=== PATIENT | male | born 1980 | race Caucasian/White ===

== ENCOUNTER 2018-07-07 14:31 | Emergency (ER) | payer SELFPAY ==
[~2018-07-07 14:31] MED LIST: KETOROLAC10 MG PO; ORPHENADRINE C100 MG PO
[2018-07-07 15:16] LABS: EOS # 0.2 (0.04-0.40); EOS % 1.9 % (0.0-4.0); HEMATOCRIT 44.3 % (42.0-52.0); HEMOGLOBIN 14.6 g/dL (13.5-18.0); LYMPH# 2.6 (1.50-4.00); MEAN CELL VOLUME 90 fl (78-100); MEAN CORPUSCULAR HEMOGLOBIN 30 pg (27-31); MEAN CORPUSCULAR HGB CONC 33 g/dL (33-37); MONO # 0.9 (0.20-0.80); NEU # 4.4 (1.40-6.50); PLATELET COUNT 287 K/mm3 (130-400); WHITE BLOOD COUNT 8.1 K/mm3 (4.8-10.8)
[2018-07-07 15:25] LABS: ALBUMIN 4.1 g/dL (3.5-5.0); CALCIUM 9.2 mg/dL (8.4-10.2); POTASSIUM 3.7 mmol/L (3.6-5.0); TOTAL BILIRUBIN 0.8 mg/dL (0.2-1.3); TOTAL PROTEIN 6.8 g/dL (6.3-8.2)
[2018-07-07 16:45] LABS: PH-URINE 5.5 (5.0 - 8.0); URINE APPEARANCE CLEAR; URINE COLOR YELLOW; URINE PROTEIN(semi-quant) TRACE mg/dL (NEGATIVE)
[2018-07-07 16:46] LABS: URINE BILIRUBIN NEGATIVE (NEGATIVE); URINE BLOOD NEGATIVE (NEGATIVE); URINE GLUCOSE NEGATIVE (NEGATIVE); URINE KETONE NEGATIVE (NEGATIVE); URINE LEUKOCYTE ESTERASE NEGATIVE (NEGATIVE); URINE NITRATE NEGATIVE (NEGATIVE); URINE UROBILINOGEN NORMAL (NORMAL); URINE WBC 0-1 /hpf (0-3)
[2018-07-07] MEDS ORDERED: LORAZEPAM0.5 M1 PO (17:12)
[2018-07-07 17:13] VITALS: BP 127/91
== END 2018-07-07 17:14 | disposition home or self-care (01) ==
LOC: ED 14:31
PROVIDERS: Family Medicine
DX: R07.89 Other chest pain (principal); F15.20 Other stimulant dependence, uncomplicated; F17.210 Nicotine dependence, cigarettes, uncomplicated

== ENCOUNTER 2019-07-27 18:03 | Emergency (ER) | payer SELFPAY ==
[~2019-07-27] VITALS: Ht 182.9 cm; Wt 79.5 kg
[~2019-07-27 18:03] MED LIST changes: +LORAZEPAM0.5 M1 PO
[2019-07-27 18:30] LABS: HEMATOCRIT 45.7 % (42.0-52.0); HEMOGLOBIN 14.9 g/dL (13.5-18.0); MEAN CELL VOLUME 91 fl (78-100); MEAN CORPUSCULAR HEMOGLOBIN 30 pg (27-31); MEAN CORPUSCULAR HGB CONC 33 g/dL (33-37); MEAN PLATELET VOLUME 10.8 fl (7.4-10.4); PLATELET COUNT 309 K/mm3 (130-400); RED BLOOD COUNT 5.02 M/mm3 (4.20-5.60); RED CELL DISTRIBUTION WIDTH 13.5 % (11.5-14.5); WHITE BLOOD COUNT 8.1 K/mm3 (4.8-10.8)
[2019-07-27 18:37] LABS: NEUTROPHILS 50 % (42-75)
[2019-07-27 18:38] LABS: LYMPHOCYTE 33 % (20-51); MONOCYTE 14 % (3-10)
[2019-07-27 18:41] LABS: ALBUMIN 4.1 g/dL (3.5-5.0)
[2019-07-27 18:42] LABS: CALCIUM 9.1 mg/dL (8.3-10.5)
[2019-07-27 18:42] LABS: URINE APPEARANCE CLEAR; URINE COLOR YELLOW
[2019-07-27 18:43] LABS: TOTAL PROTEIN 6.7 g/dL (6.4-8.3)
[2019-07-27 18:43] LABS: URINE BILIRUBIN NEGATIVE (NEGATIVE); URINE BLOOD NEGATIVE (NEGATIVE); URINE GLUCOSE NEGATIVE (NEGATIVE); URINE KETONE NEGATIVE (NEGATIVE); URINE LEUKOCYTE ESTERASE NEGATIVE (NEGATIVE); URINE NITRATE NEGATIVE (NEGATIVE); URINE PROTEIN(semi-quant) 1+ mg/dL (NEGATIVE); URINE UROBILINOGEN NORMAL (NORMAL); URINE WBC 0-1 /hpf (0-3)
[2019-07-27 18:45] LABS: TOTAL BILIRUBIN 0.7 mg/dL (0.2-1.2)
[2019-07-27] MEDS ORDERED: ZOFRAN ODT4 MG PO (21:27)
[2019-07-27] MEDS ORDERED: LORAZEPAM0.5 M1 PO (21:27)
[2019-07-27 21:42] VITALS: BP 142/80
== END 2019-07-27 21:44 | disposition home or self-care (01) ==
LOC: ED 18:03
PROVIDERS: Family Medicine
DX: E86.0 Dehydration (principal); R53.81 Other malaise; R51 Headache; F32.9 Major depressive disorder, single episode, unspecified; F41.9 Anxiety disorder, unspecified
CPT/HCPCS: J1885; J2060; J7030

== ENCOUNTER 2019-10-02 23:59 | Emergency (ER) | payer SELFPAY ==
[~2019-10-02] VITALS: Ht 182.9 cm; Wt 79.5 kg
[~2019-10-02 23:59] MED LIST changes: +ZOFRAN ODT4 MG PO
[2019-10-03] MEDS ORDERED: CYCLOBENZAPRINE10 M1 PO (00:38)
[2019-10-03 00:51] VITALS: BP 136/88
== END 2019-10-03 00:55 | disposition home or self-care (01) ==
LOC: ED 23:59
DX: M62.830 Muscle spasm of back (principal); M54.5 Low back pain; F17.210 Nicotine dependence, cigarettes, uncomplicated
CPT/HCPCS: J1885; J2360